=== PATIENT | male | born 1990 | race Caucasian/White ===

== ENCOUNTER 2022-02-13 19:29 | Emergency (ER) | payer OTHER ==
[2022-02-13 21:00] LABS: HEMOGLOBIN 16.6 gm/dl (14.0-17.5); RED BLOOD COUNT 5.01 M/UL (4.20-5.50); WHITE BLOOD COUNT 22.1 K/UL (4.5-11.0)
[2022-02-13 21:33] LABS: BUN/CREATININE RATIO 7 (0-10)
== END 2022-02-14 00:05 | disposition left against medical advice (07) ==
LOC: ER1 19:29
PROVIDERS: Physician Assistant
DX: L02.31 Cutaneous abscess of buttock (principal); F17.200 Nicotine dependence, unspecified, uncomplicated
CPT/HCPCS: 80053; 85025; 99283